=== PATIENT | male | born 1980 | race Two or more races ===

== ENCOUNTER 2016-08-03 14:14 | Emergency (ER) | payer OTHER ==
--- NOTE | 2016-08-03 14:38 | UCPHY ---
[id number] 36-year-old male presents to urgent care with chief concern sore throat, blisters on throat. Symptoms onset suddenly 2 days ago. Reports associated fatigue. He denies fever, chills, dizziness, headache, runny nose, dysphagia, cough, shortness of breath, chest pain, abdominal discomfort, nausea , vomiting, diarrhea, rash. No aggravating or alleviating factors. He has been times 10 years. ROS:10 point review of systems is negative other than as stated in HPI (Dejah Roe) Physical Exam: Vital signs stable, reviewed by me General: Awake, alert, calm, cooperative. No apparent distress. EENT: PERRLA, EOMI. Pupils injected. TMs intact, without redness or bulging. Nasal mucosa is pink without discharge. Pharynx mildly erythematous with several scattered blisters. No tonsillar abscess or exudates. Uvula midline. No drooling. No trismus. No frontal or maxillary tenderness to palpation. Neck: No cervical lymphadenopathy. Respiratory: Breathing unlabored. Lungs clear to auscultation bilaterally. CV: Heart rate regular. No murmur, rub, or gallop. GI: Abdomen soft, nontender. Bowel sounds positive x4 quadrants. : Deferred Skin: Warm, dry, intact. No rashes present. Musculoskeletal: Full ROM all extremities. Neuro: Alert oriented x3. (Dejah Roe) Constitutional: Initial Vital Signs Temperature (C) 36.7 C 08/03/16 14:25 Heart Rate 80 08/03/16 14:25 Respiratory Rate 16 08/03/16 14:25 Blood Pressure 125/80 H 08/03/16 14:25 O2 Sat (%) 95 08/03/16 14:25 O2 Delivery Mode Room Air Allergies/Adverse Reactions: No Known Allergies Allergy (Unverified 08/03/16 14:50) Home Medications: Medication Instructions Recorded NK [No Known Home Meds] 08/03/16 Medical Decision Making ED Course/Re-evaluation: Rapid strep negative (Dejah Roe) Urgent Care PA supervision Physician documentation: The patient was evaluated and managed by the physician car rental sales assistant. My co- signature indicates that I have reviewed this chart and I agree with the findings and plan of care as documented. I am the secondary supervising physician. (Gold Conteh) Differential Diagnosis: Strep pharyngitis, viral pharyngitis (Dejah Roe) Departure - Departure Disposition: Home, Routine, Self-Care Clinical Impression: Viral pharyngitis Condition: Good Instructions: Pharyngitis (ED) Additional Instructions: Plan: You have pharyngitis-a throat infection. This is likely caused by a virus. Your rapid strep test was negative. We did send a strep DNA test and will notify you of the results in 3 days if positive for strep. Drink plenty of fluids. You may use 600 mg of ibuprofen every 6 hours for fever, inflammation, or pain. Always take ibuprofen with food and stay well hydrated while taking. Do not exceed the maximum allowable dose in a 24 hour period which is 2400 mg. You may use 650mg of Tylenol every 8 hours. This may be staggered with the ibuprofen. Do not exceed the maximum dose in a 24 hour period which is 3 GM or 3000 mg. Cepacol lozenges or spray [id number] Followup urgently if you develop vomiting, stiff neck, difficulty swallowing, inability to keep down fluids. Otherwise followup with PCP next week should symptoms not totally resolve--When you call to schedule appointment, please let the office know you are an "ER follow up" appointment" Gargle with warm salt water three times daily. Referrals: NONE *PRIMARY CARE P,. [Primary Care Provider] - As per Instructions Mariluz Venegas, [employer] [Certified Nurse Practioner] - As per Instructions - PQRS PQRS Measurement: Not applicable (Dejah Roe)
[2016-08-03 14:56] VITALS: BP 125/80; PULSE 80; RESP 16; TEMP 98.1; O2SAT 95
== END 2016-08-03 15:07 | disposition home or self-care (01) ==
LOC: CED 14:14
DX: J02.9 Acute pharyngitis, unspecified (principal); S10.12XA Blister (nonthermal) of throat, initial encounter
CPT/HCPCS: 87880-PO; G0463-PO